=== PATIENT | female | born 2000 | race Caucasian/White ===

== ENCOUNTER 2022-03-04 19:28 | Outpatient (CLI) | payer OTHER, SELFPAY | END 2022-03-04 19:29 | disposition home or self-care (01) | LOC: LKVREF 19:29 | PROVIDERS: PCP Physician Assistant Medical; Visit Provider Nurse Practitioner Family | DX: R30.0 Dysuria (principal); N39.0 Urinary tract infection, site not specified | CPT/HCPCS: 87086; 87186 ==

== ENCOUNTER 2022-03-16 17:42 | Outpatient (CLI) | payer OTHER, SELFPAY ==
[2022-03-17 02:09] LABS: Chlamydia DNA Amplified* NOT DETECTED (No Detected); GC DNA Amplified* NOT DETECTED (No Detected)
== END 2022-03-16 17:43 | disposition home or self-care (01) ==
PROVIDERS: PCP Physician Assistant Medical; Visit Provider Physician Assistant Medical
DX: N39.0 Urinary tract infection, site not specified (principal)
CPT/HCPCS: 87086; 87491; 87591

== ENCOUNTER 2022-05-31 11:05 | Outpatient (CLI) | payer OTHER, SELFPAY ==
[2022-06-03 06:42] LABS: Rapid Plasma Reagin (RPR) Non Reactive (Non Reactive)
[2022-06-04 23:08] LABS: HSV 1 Subtype by PCR Detected; HSV 2 Subtype by PCR Not Detected; Herpes Simplex Subtype Source Swab
== END 2022-05-31 11:06 | disposition home or self-care (01) ==
PROVIDERS: PCP Physician Assistant Medical; Visit Provider Physician Assistant
DX: K62.9 Disease of anus and rectum, unspecified (principal); R21 Rash and other nonspecific skin eruption
CPT/HCPCS: 86592; 87529

== ENCOUNTER 2024-06-17 09:28 | Outpatient (CLI) | payer OTHER, SELFPAY | END 2024-06-17 09:29 | disposition home or self-care (01) | LOC: NFLDREF 17:03 | PROVIDERS: PCP Physician Assistant Medical; Referring Provider Physician Assistant Medical; Visit Provider Nurse Practitioner Family | DX: N39.0 Urinary tract infection, site not specified (principal) | CPT/HCPCS: 87086 ==